=== PATIENT | female | born 1970 | race Caucasian/White ===

== ENCOUNTER 2020-04-28 17:27 | Outpatient (CLI) | payer OTHER, SELFPAY ==
--- NOTE | ~2020-04-28 | XR_ITS ---
EXAMINATION:XR_CERV2-3V_CR, XR thoracic spine 3V DATE: 04/28/2020 18:28 INDICATION: Neck pain TECHNIQUE: 1. AP, lateral and odontoid views of the cervical spine are provided. 2. AP, lateral and lateral swimmer's views of the thoracic spine were obtained. COMPARISON: None FINDINGS: Cervical spine: 9 degree levocurvature measured between C3 and T2. Sagittal alignment is normal. Odontoid is intact. Normal atlantoaxial interval. Vertebral body heights are normal. Mild disc height loss at C2-C3 and minimal at C5-C6. No significant facet or uncovertebral osteoarthritis. Prevertebral soft tissues are normal. Thoracic spine: 13 degree dextro scoliosis measured between T5 and T8. 8 degree levocurvature measured between T8 and T11. Sagittal alignment is normal. Vertebral body heights are normal. Mild disc height loss with sma ll endplate osteophytes throughout the mid to lower thoracic spine. Visualized portions of the lungs are clear. Cardiomediastinal silhouette is normal. IMPRESSION: 1. Mild midthoracic dextro scoliosis with mild levocurvature of the cervicothoracic and lower thoraci c spine. 2. Mild mid to lower thoracic and minimal cervical spondylosis. Reviewed, dictated and finalized at location H. LE MEAT CUTTER IMPRESSION: 1. Mild midthoracic dextro scoliosis with mild levocurvature of the cervicothor acic and lower thoracic spine. 2. Mild mid to lower thoracic and minimal cervical spondylosis.
== END 2020-04-28 17:28 ==
PROVIDERS: Visit Provider Nurse Practitioner
DX: M47.23 Other spondylosis with radiculopathy, cervicothoracic region (principal); M41.9 Scoliosis, unspecified
CPT/HCPCS: 72040; 72072

== ENCOUNTER → 2021-10-15 12:30 | Outpatient (CLI) | payer OTHER, SELFPAY ==
--- NOTE | ~2021-10-15 | MM_ITS ---
EXAMINATION: MM screening mikaela BI w alok HISTORY: Screening TECHNIQUE: Craniocaudal and mediolateral oblique 3-D tomosynthesis images were obtained and synthetic 2-D images were generated. CAD analysis was submitted and interpreted. COMPARISON: Comparison to multiple prior studies sequentially, with oldest reviewed study dated 08/2016. BREAST PARENCHYMAL COMPOSITION: Breast composition is almost entirely fatty FINDINGS: There is no evidence of suspicious mass, calcification, or architectural distortion to sugg est malignancy in either breast. There has been no suspicious interval change. IMPRESSION: 1. No mammographic evidence of malignancy. 2. Recommend routine screening mammography in one year. BI-RADS Category 1: Negative Reviewed, dictated and finalized at location A.
== END ==
PROVIDERS: PCP Family Medicine; Visit Provider Nurse Practitioner Adult Health
DX: Z12.31 Encounter for screening mammogram for malignant neoplasm of breast (principal)
CPT/HCPCS: 77063; 77067

== ENCOUNTER → 2021-11-24 10:56 | Outpatient (CLI) | payer OTHER, SELFPAY ==
--- NOTE | ~2021-11-24 | US_ITS ---
EXAMINATION: US abdomen complete DATE: 11/24/2021 11:38 INDICATION: Unspecified abdominal pain TECHNIQUE: Multiple grayscale and Doppler ultrasound images of the abdomen were obtained. COMPARISON: None available FINDINGS: Bowel gas obscures visualization of the pancreas. The liver is normal with normal echogenic ity and echotexture. No surface nodularity. Normal hepatopetal flow in the main portal vein. There ar e multiple stones in the gallbladder. There is wall thickening of the gallbladder. No pericholecystic fluid is identified. The normal common bile duct measures 4 mm. There was no sonographic Shetty sign however sensitivity is decreased by pain medication. The visualized portions of the aorta and inferi or vena cava are normal. The right kidney measures 10.3 x 4.6 x 5.5 cm. The left kidney measures 10.5 x 3.7 x 4.9 cm. The kidn eys demonstrate normal parenchymal echogenicity. There is no hydronephrosis. The spleen is normal in appearance and measures 9.4 cm. IMPRESSION: 1. Cholelithiasis and gallbladder wall thickening without evidence of pericholecystic fluid. Findings are equivocal for cholecystitis. Consider further evaluation with nuclear hepatobiliary scan. Reviewed, dictated and finalized at location A. IMPRESSION: 1. Cholelithiasis and gallbladder wall thickening without evidence of perichole cystic fluid. Findings are equivocal for cholecystitis. Consider further evalua tion with nuclear hepatobiliary scan.
== END ==
PROVIDERS: PCP Family Medicine; Visit Provider Nurse Practitioner Adult Health
DX: R10.9 Unspecified abdominal pain (principal); K59.01 Slow transit constipation; K80.20 Calculus of gallbladder without cholecystitis without obstruction
CPT/HCPCS: 76700

== ENCOUNTER → 2021-11-24 10:58 | Outpatient (CLI) | payer OTHER, SELFPAY ==
--- NOTE | ~2021-11-24 | XR_ITS ---
XR ankle RT min 3V DATE: 11/24/2021 11:55 INDICATION: Right ankle pain TECHNIQUE: 4 views COMPARISON: None FINDINGS: No fracture or dislocation of the ankle or disruption of the ankle mortise. Posterior calca florencia enthesopathy. IMPRESSION: Negative fracture or dislocation Posterior calcaneal enthesopathy. Reviewed, dictated and finalized at location A.
== END ==
PROVIDERS: PCP Family Medicine
DX: M25.571 Pain in right ankle and joints of right foot (principal); M77.31 Calcaneal spur, right foot
CPT/HCPCS: 73610

== ENCOUNTER 2021-12-22 07:16 | Outpatient (CLI) | payer OTHER, SELFPAY ==
--- NOTE | 2022-01-01 19:46 | WPDHOMESLEEP ---
Sleep Study - Home Unattended Date of Study: 12/22/21 Ordering Provider: Blayne Jean Baptiste, ELECTRICAL ENGINEER MEP Interpreting Provider: Zeinab Garcia, DO Home Sleep Study Type: Apnea Link Air Height: 1.65 m Weight: 98.883 kg Body Mass Index: 36.2 Neck Circumference (inches): 14.25 [place]: 15 Reason for Sleep Study Daytime hypersomnia Sleep History The patient is a 51-year-old female with lumbosacral spine spondylosis, bipolar disorder, hypothyroidism, migraines, rheumatoid arthritis, anxiety, and narcolepsy without cataplexy that had a sleep study ordered by her primary care for evaluation of insomnia. The patient occasionally awakens from sleep short of breath. She occasionally awakens from sleep short of breath. She occasionally awakens at night with heartburn, belching or cough. She frequently snores and is occasionally loud enough that others complain. She frequently has trouble sleeping when she has a cold. She occasionally wakes up gasping for air throughout the night. He rarely has breathing problems at night observed by herself or others. She occasionally sweats excessively at night. She occasionally has heart palpitations or irregular heartbeats during the night. She constantly falls asleep during the day. She rarely falls asleep while driving. She occasionally experiences loss of muscle tone when extremely emotional. She frequently has trouble at school or work due to sleepiness. She constantly feels unable to move while waking up or falling asleep. She frequently experiences vivid dreamlike scenes upon awakening or falling asleep. She rarely feels afraid of going to sleep. She frequently has nightmares. She occasionally remembers her dreams. She constantly has thoughts racing through her mind. He occasionally feels sad or depressed. She frequently has anxiety. She constantly has muscular tension. She constantly notices parts of her body jerk. He occasionally kicks during the night. She constantly has crawling and aching feelings in her legs swell as leg pain during the night. She frequently grinds her teeth during sleep but rarely awakens with morning jaw pain. She is constantly bothered by pain during the day and constantly awakened by pain during the night. She constantly wakes up feeling stiff in the morning. She constantly wakes up with sore achy muscles. He constantly wakes up with pain in the neck, spine and other joints. She goes to bed between 8-10 p.m. on weekdays and between 9-11 p.m. on the weekends. It takes her several hours to fall asleep. She wakes up 2-3 times throughout the night to urinate, watch television, read or try to go back to sleep. It takes her about an hour to fall back asleep. She wakes up between 5-7 a.m. on weekdays and between 9-10 a.m. on the weekends. She typically gets 4-6 hours of sleep per night. She will stay in bed for 2 hours after waking up in the morning. She currently lives with her and adult son. She does not consume any caffeinated beverages within 2 hours of bedtime. She does not engage in physical exercise. she reads and will occasionally watch television before falling asleep. She will take naps in the afternoon or the evening but they are not refreshing. She drinks 2 cups of coffee and 4 cups of ice tea per day. She denies tobacco, alcohol and recreational drug use. [facility] Past Medical History Medical History (Updated 01/01/22 @ 20:31 by Zeinab Garcia DO) Bipolar 1 disorder Hyperlipidemia Hypothyroidism Insomnia Migraine with aura Rheumatoid arthritis Social History Social History (Updated 01/01/22 @ 20:03 by Zeinab Garcia DO) Smoking status: Never smoker Alcohol intake: never Substance use: never Living arrangements: with family Gender identity (if verbalized by the patient): Female Sleep Procedure This test was performed using 4 channel monitoring including respiratory effort channel, snoring channel, heart rate ch
[2022-01-01 19:59] VITALS: BMI 36.2
== END 2021-12-24 10:47 | disposition home or self-care (01) ==
PROVIDERS: PCP Family Medicine; Visit Provider Nurse Practitioner Adult Health
DX: G47.30 Sleep apnea, unspecified (principal); G47.10 Hypersomnia, unspecified
CPT/HCPCS: 95806

== ENCOUNTER 2022-01-15 11:40 | Outpatient (CLI) | payer OTHER, SELFPAY ==
--- NOTE | ~2022-01-15 | NM_ITS ---
EXAMINATION: RI hepatobiliary wo pharm DATE: 01/15/2022 16:18 INDICATION: Abdominal pain, unspecified. COMPARISON: CT abdomen and pelvis 01/15/2022 TECHNIQUE: 4.7 mCi Tc-99m mebrofenin (Choletec) was administered intravenously. Scintigraphic images of the abdomen were obtained for one hour. Delayed images were obtained at 4 hours. FINDINGS: There is normal clearance of radiotracer from the blood pool. There is homogeneous tracer u ptake by the liver. Activity progresses to the bowel. IMPRESSION: 1. Lack of activity in the gallbladder, consistent with acute cholecystitis. Reviewed, dictated and finalized at location A.
== END 2022-01-15 11:41 | disposition home or self-care (01) ==
LOC: ANHIMG 11:44
PROVIDERS: PCP Nurse Practitioner Adult Health; Visit Provider Family Medicine
DX: R10.9 Unspecified abdominal pain (principal); K59.00 Constipation, unspecified
CPT/HCPCS: 78226; A9537

== ENCOUNTER 2022-01-15 14:58 | Outpatient (CLI) | payer OTHER, SELFPAY ==
--- NOTE | ~2022-01-15 | CT_ITS ---
EXAMINATION: CT abdomen pelvis w con DATE: 01/15/2022 15:42 INDICATION: Abdomen pain. TECHNIQUE: Computed tomography (CT) of the abdomen and pelvis was performed with 100 cc Omnipaque 350 intravenous contrast. The dose-length product was 1081.81 mGy-cm. Automated exposure control and ite rative reconstruction technique were employed. COMPARISON: CT dated 04/25/2017. FINDINGS: Lung bases are unremarkable. Heart size normal. No significant pleural or pericardial effus ion. No significant vascular abnormality. No lymphadenopathy. There are small low density lesions of both kidneys, most likely benign cysts. The liver, spleen, chapin creas, adrenal glands are unremarkable. Gallbladder is present. Nonobstructive bowel gas pattern. No free air or free fluid. No acute osseous abnormality. There is anterior fusion and discectomy at L4-5 . IMPRESSION: 1. No acute findings to account for patient's symptoms. Reviewed, dictated and finalized at location A.
== END 2022-01-15 14:59 ==
LOC: MICIMG 14:59
PROVIDERS: PCP Nurse Practitioner Adult Health; Visit Provider Nurse Practitioner Adult Health
DX: R10.9 Unspecified abdominal pain (principal); K59.01 Slow transit constipation
CPT/HCPCS: 74177; Q9967

== ENCOUNTER 2022-03-09 12:13 | Outpatient (CLI) | payer OTHER, SELFPAY ==
--- NOTE | 2022-03-09 12:46 | ECG_ITS ---
Measurements Intervals [place] Rate: 69 P: -15 ID: 140 QRS: 30 QRSD: 97 T: -4 QT: 384 QTc: 411 Interpretive Statements SINUS RHYTHM BASELINE ARTIFACT NONSPECIFIC T-WAVE ABNORMALITY BORDERLINE ECG NO PREVIOUS ECG AVAILABLE FOR COMPARISON Electronically Signed On 03-09-2022 17:16:03 CDT by Pravin Ortega M.D.
[2022-03-09 14:04] LABS: Hemoglobin 11.7 g/dL (12.0-15.0)
[2022-03-09 14:15] LABS: Alanine Aminotransferase 21 U/L (6-35); Albumin Level 4.2 g/dL (3.5-5.1); Alkaline Phosphatase 70 U/L (38-126); Amylase 59 U/L (30-110); Aspartate Amino Transferase 29 U/L (14-36); Bilirubin,Total 0.6 mg/dL (0.2-1.3); Lipase 34 U/L (23-300)
== END 2022-03-09 12:14 | disposition home or self-care (01) ==
PROVIDERS: Anesthesiology; PCP Nurse Practitioner Adult Health; Visit Provider Surgery
DX: Z01.818 Encounter for other preprocedural examination (principal); D64.9 Anemia, unspecified; Z87.891 Personal history of nicotine dependence; K80.10 Calculus of gallbladder with chronic cholecystitis without obstruction
CPT/HCPCS: 36415; 80076; 82150; 83690; 85014; 85018; 86850; 86900; 86901; 93005

== ENCOUNTER 2022-03-10 00:54 | Day surgery (SDC) | payer OTHER, SELFPAY ==
[2022-03-08 08:55] VITALS: BMI 36.5
--- NOTE | 2022-03-08 09:24 | PC.NURSE ---
Report to the Outpatient Waiting Room, entrance under the green pavilion located off [facility], at time 10:00 on date 03/10/22. OR Time: 12:00. Time changes happen often and if your time is changed the preop area will call you the afternoon before. - You and your visitor will be asked to self-screen and do not enter if you have any COVID symptoms. - Only one visitor and NO children visitors are allowed at this time. - The patient visitor is requested to leave or wait in car when not with patient due to restrictions. - A mask is required within the hospital. Patients may have clear liquids (water, carbonated beverages, clear teas, apple juice) until 3 hours prior to surgery (9:00) with a maximum of 20 ounces. - No food from midnight until time of surgery Take the following medications with a SIP of water the morning of surgery: ARIPIPRAZOLE, CEFUROXIME, DILAUDID, HYDROXYZINE, LEVOTHYROXINE, REGLAN, PREGABALIN, FENTANYL PATCH Medications to discontinue per physician: IBUPROFEN Date to take last dose: PER DR. QUEEN Please no make-up, nail spanish, hairspray, perfume, deodorant, or body powder the day of surgery. No jewelry (including any body piercings) or valuables the day of surgery, leave them at home. Please take a shower or bath the night before, or the morning of, surgery with an antibacterial soap (HIBICLENS). Wear comfortable, loose fitting clothing. - Jewelry must be removed prior to entering the operating room. Rings and piercings that are not removed may be cut off. - The hospital will not accept responsibility for valuables. - Please leave all valuables, including medications, at home the day of surgery. If you are going home after surgery, a licensed steam train driver must drive you home. - NO public transportation without another adult. - We recommend that an adult stay with you for 24 hours following discharge. - We also recommend that you do not drive, make important decision, drink alcoholic beverages, or take any drugs that were not prescribed by your health care provider for at least 24 hours after your discharge time. Follow any additional instructions given to you from your surgeon. If you or anyone in your household have experienced Covid symptoms in the past week, please notify your surgeon or the nurse liaison at the phone number below for possible testing. Telephone instructions given to PT - HEAVEN REYNAGA and asked if any additional questions and then verbalized understanding. Patient advised to call surgeon office or pre surgery nurse liaison [phone] if any additional questions.
--- NOTE | 2022-03-09 14:05 | WPDANESEPPF ---
Anes - Initial Pre Proc Eval Procedure: Operation Date: 03/10/22 12:00 Proposed Procedures p Laparoscopic Cholecystectomy - Eamon Klein MD Date/Time: 03/09/22 14:05 Surgeon: Eamon Klein MD Pre Op Diagnosis: Chronic Cholecystitis with Stones Patient Data Age: 51 Gender: F Height: 1.65 m Weight: 99.5 kg Allergies Allergy/AdvReac Type Severity Reaction Status Date / Time oxaprozin [From Daypro] Allergy Anaphylaxis Verified 03/10/22 11:00 Sulfa (Sulfonamide Allergy Anaphylactic Verified 03/10/22 11:00 Antibiotics) Shock Home Medications Medication Instructions Recorded Confirmed Type aripiprazole 20 mg tablet (Abilify) 20 mg PO DAILY 02/15/22 03/10/22 History dextroamphetamine-amphetamine ER 20 mg PO DAILY 02/15/22 03/10/22 History 20 mg 24hr capsule,extend release ergocalciferol (vitamin D2) 1,250 1,250 mcg PO MONTHLY 02/15/22 03/10/22 History mcg (50,000 unit) capsule fentanyl 25 mcg/hr transdermal 1 patch transdermal Q72H 02/15/22 03/10/22 History patch hydromorphone 2 mg tablet 2 mg PO Q4H 02/15/22 03/10/22 History (Dilaudid) hydroxyzine pamoate 25 mg capsule 25 mg PO BID PRN Anxiety 02/15/22 03/10/22 History levothyroxine 25 mcg capsule 25 mcg PO DAILY 02/15/22 03/10/22 History metoclopramide HCl 10 mg tablet 10 mg PO Q6H PRN Nausea 02/15/22 03/10/22 History (Reglan) pregabalin 50 mg capsule (Lyrica) 50 mg PO BID 02/15/22 03/10/22 History zolmitriptan 5 mg tablet 5 mg PO ONCE PRN Migraine Headache 02/15/22 03/10/22 History cefuroxime axetil 500 mg tablet 500 mg PO BID 03/08/22 03/10/22 History ibuprofen 800 mg tablet 800 mg PO Q6H PRN Pain 03/08/22 03/10/22 History Patient hx anesthesia problems: none Family hx anesthesia problems: none Results Review: All pre-operative results and documents have been reviewed as part of the pre-operative evaluation. [facility] Past Medical History Medical History (Updated 03/09/22 @ 14:07 by Juanjose Camejo MD) Bipolar 1 disorder Chronic back pain Chronic narcotic use Hyperlipidemia Hypothyroidism Insomnia Migraine with aura Obesity (BMI 30-39.9) Opiate dependence Rheumatoid arthritis Surgical History Surgical History History of back surgery History of bladder surgery History of partial hysterectomy Family History Family History Other Heart disease Hypertension Social History Social History Smoking packs per day: 1.5 Smoking cigarettes per day: 30.0 Years smoked: 15 Smoking pack-years: 22.50 Smoking status: Former smoker Tobacco type: cigarettes and e-cigarettes/vaping Smoking end date: 06/06/14 Additional smoking assessment comments: VAPING NOW Alcohol intake: current Alcohol use details: rarely Substance use: never Substance use type: marijuana Living arrangements: with family Gender identity (if verbalized by the patient): Female Spiritual care concerns: No Anes - Eval Final PreProcedure Day of Procedure 03/09/22 14:05 Patient weight: obese Heart: regular rate and rhythm Lungs: clear to auscultation and normal air movement Airway: Mallampati scale class II Neurological: alert and oriented Last oral intake: >/= 8 hours ASA classification: III Emergent: no Anesthetic plan: proceed Anesthesia type and monitoring: general ETT Results Review: All pre-operative results and documents have been reviewed as part of the pre-operative evaluation. Informed Consent: The patient's anesthetic plan and its attendant risks and benefits were discussed with the patient/family/POA. Questions were solicited and answers provided to the satisfaction of the patient/family/POA.
[2022-03-10] VITALS (9 sets, daily range): BP systolic 90–110; BP diastolic 46–66; PULSE 43–58; RESP 10–16; TEMP 35.9–36.5; O2SAT 96–100
--- NOTE | 2022-03-10 09:28 | WPDHPUPDATE1 ---
History and Physical Update Update Date/Time: 03/10/22 09:28 History and Physical has been reviewed, including an updated exam of the patient. There are NO changes in the patient's condition. Risks, benefits, and alternatives have been discussed and questions answered. Patient agrees to proceed with procedure.
[2022-03-10] MEDS: ACETAMINOPHEN 500 MG TABLET 1000 MG PO (10:34)
[2022-03-10] MEDS: KETOROLAC 15 MG/ML VIAL (*BKC) IV PUSH (10:35)
[2022-03-10] MEDS: LACTATED RINGERS 1,000 ML 30 ML IV CONT (10:35)
[2022-03-10] MEDS: SCOPOLAMINE 1.5 MG PATCH TRANSDERM (13:00)
[2022-03-10] MEDS: ceFAZolin 2 GM/D5W 50 ML 2 GM/50 ML BAG IVPB (13:25)
[2022-03-10] MEDS: BUPIVACAINE/EPINEPHRINE 0.25% 50 ML VIAL INFILTRATE (14:40)
[2022-03-10] MEDS: ONDANSETRON INJ 4 MG/2 ML VIAL IV PUSH (15:25)
--- NOTE | 2022-03-10 15:28 | W.PM.PROC2 ---
Procedure Note - Detailed Date of Procedure 03/10/22 Pre-op Diagnosis Chronic Cholecystitis with Stones Post-op Diagnosis Same Procedure Performed Laparoscopic cholecystectomy Surgeon Eamon Klein MD Automobile Repossessor Homer TAYLOR Anesthesia General and Local (0.25% Marcaine with epinephrine) Indications Patient has had multiple episodes of postprandial right upper quadrant abdominal pain particularly after fatty meals. She had gallbladder imaging that showed stones. HIDA scan showed cystic duct obstruction consistent with cholecystitis. She is taken to surgery now for laparoscopic cholecystectomy. Findings Gallbladder wall was thickened. Gallbladder was packed full of stool gallstones. Gallbladder was very adherent to the gallbladder fossa and liver bed due to chronic inflammation. There was no biliary ductal dilatation noted. No liver abnormalities noted. Description of Procedure The patient was taken to surgery and induced into general anesthesia. The abdomen is prepped and draped. Trocars were placed in the usual fashion using local anesthetic and applied Medical optical trocars. A 5 mm camera was used. The gallbladder was noted to be full of stones and difficult to grasp. We were able to graft some of the wall and retracted anterosuperiorly. Traction was placed on the infundibulum and dissection was carried out in the cholecystohepatic triangle. The cystic duct and cystic artery were dissected out very clearly. Critical view was achieved. I then securely clipped and divided the cystic duct and cystic artery. The gallbladder was then further dissected free of its attachments to the liver. During the dissection of the upper portion of the gallbladder, near the fundus, a couple of small entries into the gallbladder were made. Some yellowish bile with stone grit came out in small amounts. This was suctioned away with no residual. We eventually dissected the gallbladder free entirely of the liver. It was placed in Endo-Catch bag. It was extricated through the epigastric trocar site. I did have to dilate and enlarge the epigastric trocar site too accommodate the gallbladder. Once the gallbladder was removed, I replaced the epigastric trocar. The site was occluded with a towel clip so that we could reinsufflated. We irrigated and suctioned the right upper quadrant. We checked for any signs of bleeding or bile leakage. No residual stone or small bits of stone were noted. All looked quite good. We then evacuated CO2 and removed the trocar sleeves. I closed the fascia at the epigastric trocar site with [id number] mattress suture of 0 Vicryl. The subQ was closed with 3-0 Vicryl. All skin incisions were closed with running 4-0 Monocryl skin suture. Wounds were dressed with Exofin surgical adhesive. Patient was awakened and taken to recovery in good condition. Sponge needle counts were correct x2. Estimated Blood Loss -10.0 Drains No Packing No Pathology Yes (Gallbladder) Complications No immediate complications Condition Stable Disposition PACU [facility] Billing Surgery - Charge Forward: Surgery Billing (Laparoscopic cholecystectomy)
[2022-03-10] MEDS: fentaNYL (*CRX) 25 MCG PATCH TRANSDERM (15:39)
[2022-03-10] MEDS: oxyCODONE HCL (*CRX) 5 MG TAB IR PO (16:28)
== END 2022-03-10 17:14 | disposition home or self-care (01) ==
PROVIDERS: PCP Nurse Practitioner Adult Health; Visit Provider Surgery
PROC: 0FT44ZZ Resection of Gallbladder, Percutaneous Endoscopic Approach (ICD-10-PCS; CPT 47562; principal; 2022-03-10 12:00)
DX: K80.10 Calculus of gallbladder with chronic cholecystitis without obstruction (principal); E03.9 Hypothyroidism, unspecified; F31.9 Bipolar disorder, unspecified; E78.5 Hyperlipidemia, unspecified; G47.00 Insomnia, unspecified; M06.9 Rheumatoid arthritis, unspecified; Z87.891 Personal history of nicotine dependence; F12.90 Cannabis use, unspecified, uncomplicated; E66.9 Obesity, unspecified; Z68.36 Body mass index [BMI] 36.0-36.9, adult; R10.11 Right upper quadrant pain; M54.9 Dorsalgia, unspecified; F11.20 Opioid dependence, uncomplicated
CPT/HCPCS: 47562; 36415; 80076; 82150; 83690; 85014; 85018; 86850; 86900; 86901; 88304; 93005; A9270; C1713; J0690; J1100; J1170; J1885; J2250; J2405; J2704; J2765; J3010; J7120

== ENCOUNTER 2024-01-09 14:37 | Outpatient (CLI) | payer OTHER, SELFPAY ==
--- NOTE | ~2024-01-09 | XR_ITS ---
XR hand RT 2V Ordering provider: Eboni Adkins, FOUNDRY HELPER History: . Multiple joint pain no injury . Comparison: None. FINDINGS: BONES: No acute fracture or dislocation. JOINT SPACES: Normal. SOFT TISSUES: Normal. IMPRESSION: No acute osseous abnormality right hand. Reviewed, dictated and finalized at location A.
--- NOTE | ~2024-01-09 | XR_ITS ---
XR wrist RT 2V Ordering provider: Eboni Adkins, ORTHOPAEDIC GENERAL History: . Multiple joint pain no injury . Comparison: None. FINDINGS: BONES: No acute fracture or dislocation. No definite scaphoid fracture. JOINT SPACES: Normal. SOFT TISSUES: Normal. IMPRESSION: No acute osseous abnormality right wrist. Reviewed, dictated and finalized at location A.
--- NOTE | ~2024-01-09 | XR_ITS ---
XR foot RT 2V Ordering provider: Eboni Adkins, DIRECTOR DIGITAL CATALOGUE History: . Multiple joint pain no injury . Comparison: None. FINDINGS: BONES: No acute fracture or dislocation. JOINT SPACES: Normal. No tarsal coalition. SOFT TISSUES: Normal. Metallic object projected over the middle phalanx of the second toe. Ossification of the insertion of the tendo Achilles. IMPRESSION: No acute osseous abnormality of the right foot. Reviewed, dictated and finalized at location A.
--- NOTE | ~2024-01-09 | XR_ITS ---
XR sacroiliac joints min 3V Ordering provider: Eboni Adkins, NURSING ASSOC History: . Multiple joint pain no injury . Comparison: None. FINDINGS: BONES: Postoperative changes in the lower lumbar area. No acute fracture or dislocation. JOINTS: The bilateral sacroiliac joint spaces appear well maintained. No bony fusion of the sacroilia c joints or bony erosions. Mild osteoarthritic changes of the hip joints. SOFT TISSUES: Unremarkable. IMPRESSION: NO ACUTE OSSEOUS ABNORMALITY. NORMAL SACROILIAC JOINTS. Reviewed, dictated and finalized at location A.
--- NOTE | ~2024-01-09 | XR_ITS ---
XR foot LT 2V Ordering provider: Eboni Adkins, TANNERY WORKER History: . Multiple joint pain no injury . Comparison: None. FINDINGS: BONES: No acute fracture or dislocation. Metallic objects projected over the second and third toe. JOINT SPACES: Normal. No tarsal coalition. SOFT TISSUES: Normal. Ossification of the insertion of the tendo Achilles. IMPRESSION: No acute osseous abnormality left foot. Reviewed, dictated and finalized at location A.
--- NOTE | ~2024-01-09 | XR_ITS ---
XR hand LT 2V Ordering provider: Eboni Adkins, CHAIR INSPECTOR AND LEVELER History: . Multiple joint pain no injury . Comparison: None. FINDINGS: BONES: No acute fracture or dislocation. JOINT SPACES: Well maintained. SOFT TISSUES: Unremarkable. IMPRESSION: No acute osseous abnormality left hand. Reviewed, dictated and finalized at location A.
--- NOTE | ~2024-01-09 | XR_ITS ---
EXAMINATION: XR chest 2V Exam Date/Time: 01/09/2024 15:00 CDT HISTORY: Multiple joint pain no injury Comparison: 12/16/2006. RESULT: Lines, tubes, and devices: None. Lungs and pleura: Persistent mild left hemidiaphragm elevation. Minimal streaky left basilar opaciti es, likely scar/atelectasis. Otherwise clear. Cardiomediastinal silhouette: Stable. Other: No acute osseous or upper abdominal finding. IMPRESSION: No acute cardiopulmonary process. Reviewed, dictated and finalized at location K.
--- NOTE | ~2024-01-09 | XR_ITS ---
XR ankle LT 2V Ordering provider: Eboni Adkins, STAMPING DIE TRY OUT WORKER History: . Multiple joint pain no injury . Comparison: None. FINDINGS: BONES: No acute fracture or dislocation. Calcaneal spur. Ossification of the insertion of the tendo Achilles. JOINT SPACES: The ankle mortise is normal. SOFT TISSUES: Normal. IMPRESSION: No acute osseous abnormality left ankle. Reviewed, dictated and finalized at location A.
--- NOTE | ~2024-01-09 | XR_ITS ---
XR ankle RT 2V Ordering provider: Eboni Adkins, BANKING SPECIALIST History: . Multiple joint pain no injury . Comparison: None. FINDINGS: BONES: No acute fracture or dislocation. Ossification of the insertion of the tendo Achilles. JOINT SPACES: Normal. SOFT TISSUES: Normal. IMPRESSION: No acute osseous abnormality of the right ankle. Reviewed, dictated and finalized at location A.
--- NOTE | ~2024-01-09 | XR_ITS ---
XR wrist LT 2V Ordering provider: Eboni Adkins, THERMOSTAT MACHINE TENDER History: . Multiple joint pain . Comparison: None. FINDINGS: BONES: No acute fracture or dislocation. No definite scaphoid fracture. JOINT SPACES: Well maintained. SOFT TISSUES: Normal. IMPRESSION: No acute osseous abnormality left wrist. Reviewed, dictated and finalized at location A.
== END 2024-01-09 14:38 ==
PROVIDERS: PCP Family Medicine; Visit Provider Nurse Practitioner Family
DX: R53.81 Other malaise (principal); R91.8 Other nonspecific abnormal finding of lung field
CPT/HCPCS: 71046; 72202; 73100; 73120; 73600; 73620

== ENCOUNTER 2024-11-19 13:28 | Outpatient (CLI) | payer OTHER, SELFPAY ==
--- NOTE | ~2024-11-19 | CT_ITS ---
Noncontrast CT scan of the thoracolumbar spine CLINICAL HISTORY: Pain TECHNIQUE: Axial noncontrast imaging of the thoracolumbar spine was performed. Sagittal and coronal r eformatted images were constructed. Dose reduction technique was used on this scan by utilizing autom ated exposure control and iterative reconstruction technique. The dose-length product (DLP) was 1569. 40 mGy-cm. FINDINGS: No acute fracture or subluxation identified. Vertebral bodies maintain normal height and al ignment. There is anterior and interbody fusion at L4-L5. There are minimal degenerative disc changes at the mid thoracic spine. Remaining intervertebral disc spaces are relatively well preserved throug hout the thoracic and lumbar spine. There are scattered facet joint degenerative changes in the thoracic spine. No significant disc bulge or herniation evident thoracic spine. No canal stenosis or cord compression evident in the thoracic spine. Neural foramina are preserved throughout the thoracic spine. At L1-L2, there is minimal disc bulge and mild facet arthropathy. No central canal stenosis or neural foraminal narrowing. At L2-L3, there is minimal disc bulge. There is moderate to advanced facet arthropathy. No dick cent ral canal stenosis. Neural foramina are preserved. At L3-L4, there is disc bulge and severe facet arthropathy. There is moderate to advanced spinal traci l stenosis/thecal sac compression. There is mild left neural foraminal narrowing. Right neural forame n preserved. At L4-L5, there is no definite disc bulge or herniation. No definite canal stenosis. Probable minimal bilateral neural foraminal narrowing. At L5-S1, there is mild disc bulge. No canal stenosis. There is moderate bilateral neural foraminal n arrowing. Paravertebral soft tissues are unremarkable. Impression: No acute abnormality. Anterior and interbody fusion at L4-L5. Advanced degenerative spondylosis at L3-L4, as detailed above. Moderate bilateral neural foraminal na rrowing at L5-S1. Reviewed, dictated and finalized at [facility]. Impression: No acute abnormality. Anterior and interbody fusion at L4-L5. Advanced degenerative spondylosis at L3-L4, as detailed above. Moderate bilater al neural foraminal narrowing at L5-S1.
== END 2024-11-19 13:29 | disposition home or self-care (01) ==
PROVIDERS: PCP Pain Medicine Pain Medicine; Visit Provider Pain Medicine Pain Medicine
DX: M47.817 Spondylosis without myelopathy or radiculopathy, lumbosacral region (principal)
CPT/HCPCS: 72128; 72131